=== PATIENT | female | born 1965 | race Caucasian/White ===

== ENCOUNTER → 2019-07-14 | Outpatient (CLI) | payer BC | LOC: RAD 14:29 | DX: M48.02 Spinal stenosis, cervical region (principal); M47.22 Other spondylosis with radiculopathy, cervical region; M25.78 Osteophyte, vertebrae ==

== ENCOUNTER → 2019-12-09 | Outpatient (CLI) | payer BC | LOC: RAD 15:30 | DX: M19.072 Primary osteoarthritis, left ankle and foot (principal); M77.32 Calcaneal spur, left foot ==

== ENCOUNTER → 2020-04-11 | Outpatient (CLI) | payer BC | LOC: LAB 13:56 | DX: Z13.29 Encounter for screening for other suspected endocrine disorder (principal); E78.5 Hyperlipidemia, unspecified; K90.9 Intestinal malabsorption, unspecified; R63.5 Abnormal weight gain; Z78.0 Asymptomatic menopausal state; Z76.89 Persons encountering health services in other specified circumstances ==

== ENCOUNTER → 2020-05-30 | Outpatient (CLI) | payer BC | LOC: LAB 16:49 | DX: Z13.29 Encounter for screening for other suspected endocrine disorder (principal); K90.9 Intestinal malabsorption, unspecified; E78.5 Hyperlipidemia, unspecified; R63.5 Abnormal weight gain; Z78.0 Asymptomatic menopausal state; Z76.89 Persons encountering health services in other specified circumstances ==

== ENCOUNTER → 2021-01-09 | Outpatient (CLI) | payer BC ==
[2021-01-09 17:01] LABS: EOS # 0.1 (0.04-0.40); EOS % 2.1 % (1.0-5.0); HEMATOCRIT 43.1 % (37.0-47.0); HEMOGLOBIN 13.9 g/dL (12.5-16.0); LYMPH# 1.4 (1.50-4.00); MEAN CELL VOLUME 91 fl (78-100); MEAN CORPUSCULAR HEMOGLOBIN 29 pg (27-31); MEAN CORPUSCULAR HGB CONC 32 g/dL (33-37); MEAN PLATELET VOLUME 9.3 fl (7.4-10.4); MONO # 0.5 (0.20-0.80); NEU # 4.1 (1.40-6.50); PLATELET COUNT 333 K/mm3 (130-400); RED BLOOD COUNT 4.73 M/mm3 (4.10-5.30); RED CELL DISTRIBUTION WIDTH 14.2 % (11.5-14.5); WHITE BLOOD COUNT 6.1 K/mm3 (4.8-10.8)
[2021-01-09 17:09] LABS: ALBUMIN 4.6 g/dL (3.5-5.0); POTASSIUM 4.1 mmol/L (3.5-5.1)
[2021-01-09 17:10] LABS: CALCIUM 9.9 mg/dL (8.3-10.5)
[2021-01-09 17:12] LABS: TOTAL PROTEIN 7.7 g/dL (6.4-8.3)
[2021-01-09 17:13] LABS: TOTAL BILIRUBIN 0.4 mg/dL (0.2-1.2)
== END ==
LOC: LAB 16:50
PROVIDERS: Physician Assistant
DX: Z00.00 Encounter for general adult medical examination without abnormal findings (principal); E78.5 Hyperlipidemia, unspecified; E03.9 Hypothyroidism, unspecified; K90.9 Intestinal malabsorption, unspecified